=== PATIENT | male | born 1960 | race Caucasian/White ===

== ENCOUNTER 2017-12-01 19:07 | Inpatient (IN) | payer OTHER ==
[~2017-12-01] VITALS: Ht 170.2 cm; Wt 95.3 kg
[~2017-12-01 19:07] MED LIST: CLONAZEPAM1 MG PO; COZAAR50 MG PO
== END 2017-12-04 19:50 | disposition home or self-care (01) | DRG 440 ==
LOC: ER 19:07 → MEDI 12-02 08:52 → SEC-K 12-02 08:52 → MEDI 12-02 13:27
PROC: BW40ZZZ Ultrasonography of Abdomen (ICD-10-PCS; principal; 2017-12-02)
DX: K85.80 Other acute pancreatitis without necrosis or infection (principal); K29.00 Acute gastritis without bleeding

== ENCOUNTER 2019-02-14 11:02 | Emergency (ER) | payer OTHER ==
[~2019-02-14] VITALS: Ht 170.2 cm; Wt 99.8 kg
== END 2019-02-14 14:04 | disposition home or self-care (01) ==
LOC: ER 11:02
DX: J32.8 Other chronic sinusitis (principal); R51 Headache

== ENCOUNTER 2022-01-22 12:49 | Emergency (ER) | payer OTHER ==
[~2022-01-22] VITALS: Ht 170.2 cm; Wt 99.8 kg
[2022-01-22] MEDS ORDERED: TOPROL XL50 M1 PO (13:32)
[2022-01-22] MEDS ORDERED: AMLODIPINE BESYL5 MG PO (13:33)
[2022-01-22] MEDS ORDERED: ELIQUIS5 MG PO (13:33)
[2022-01-22] MEDS ORDERED: NORFLEX100MG PO (16:00)
== END 2022-01-22 16:41 | disposition home or self-care (01) ==
LOC: ER 12:49
DX: M54.9 Dorsalgia, unspecified (principal); I10 Essential (primary) hypertension

== ENCOUNTER 2024-12-08 07:31 | Emergency (ER) | payer OTHER ==
[~2024-12-08] VITALS: Ht 170.2 cm; Wt 86.2 kg
[~2024-12-08 07:31] MED LIST changes: +AMLODIPINE BESYL5 MG PO; +ELIQUIS5 MG PO; +NORFLEX100MG PO; +TOPROL XL50 M1 PO
[2024-12-08] MEDS ORDERED: VALSARTAN4 MG/1 ML PO (08:01)
[2024-12-08] MEDS ORDERED: ORPHENADRINE CITRATE 30 MG/ML AMPUL IM STA (08:41)
[2024-12-08] MEDS ORDERED: KETOROLAC TROMETHAMINE 60 MG VIAL IM STA (08:41)
[2024-12-08] MEDS ORDERED: ORPHENADRINE CITRATE 30 MG/ML AMPUL ONE (08:54)
[2024-12-08] MEDS ORDERED: KETOROLAC TROMETHAMINE 60 MG VIAL IM ONE (08:54)
== END 2024-12-08 10:09 | disposition home or self-care (01) ==
LOC: ER 07:34
DX: M54.50 Low back pain, unspecified (principal); Z88.0 Allergy status to penicillin; I49.8 Other specified cardiac arrhythmias; I20.89 Other forms of angina pectoris; M62.830 Muscle spasm of back
CPT/HCPCS: 72100; 96372; 99283; J1885; J2360